=== PATIENT | male | born 1990 | race Caucasian/White ===

== ENCOUNTER 2016-10-30 19:44 | Emergency (ER) | payer BC ==
[~2016-10-30] VITALS: Ht 175.3 cm; Wt 109.1 kg
[2016-10-30 19:51] VITALS: BP 132/72; TEMP 98.2
[2016-10-30] MEDS ORDERED: NORCO 325 MG-7.1 TAB PO (21:16)
[2016-10-30] MEDS ORDERED: FLEXERIL 1010 MG/TAB PO (21:17)
[2016-10-30 21:38] VITALS: PULSE 72
== END 2016-10-30 21:40 | disposition home or self-care (01) ==
LOC: COL.ER 19:44
DX: S39.012A Strain of muscle, fascia and tendon of lower back, initial encounter (principal); X50.0XXA Overexertion from strenuous movement or load, initial encounter
CPT/HCPCS: J1885